=== PATIENT | male | born 1980 | race Caucasian/White ===

== ENCOUNTER 2020-10-24 22:13 | Emergency (ER) | payer OTHER ==
[2020-10-24] MEDS ORDERED: IBUPROFEN600 MG PO (22:35)
[2020-10-24] MEDS ORDERED: KEFLEX CAP 250250 MG PO (22:35)
== END 2020-10-24 23:17 | disposition home or self-care (01) ==
LOC: ER1 22:13
DX: J34.0 Abscess, furuncle and carbuncle of nose (principal)
CPT/HCPCS: 96372; 99283; J0690